=== PATIENT | male | born 1995 | race Caucasian/White ===

== ENCOUNTER 2020-07-19 15:35 | Emergency (ER) | payer OTHER ==
[~2020-07-19] VITALS: Ht 185.4 cm; Wt 77.1 kg
[~2020-07-19 15:35] MED LIST: NOHOMEMEDICATIONS; PERCOCET 5-3251 EACH PO; PREDNISONE 20 M20 M1 PO; VENTOLIN HFA 1818 GM INH; ZPAK PO
[2020-07-19 16:18] LABS: ABSOLUTE BASOPHILS 0.1 thou/uL (0.0-0.2); ABSOLUTE EOSINOPHILS 0.2 thou/uL (0.0-0.7); ABSOLUTE LYMPHOCYTES 2.3 thou/uL (0.8-5.3); ABSOLUTE MONOCYTES 0.9 thou/uL (0.0-1.2); ABSOLUTE NEUTROPHILS 6.4 thou/uL (1.6-8.1); BASOPHILS 1.3 %; EOSINOPHILS 1.7 %; LYMPHOCYTES 23.1 %; MCH 30.8 pg (26.0-34.0); MCHC 34.1 g/dL (28.0-37.0); MCV 90.5 fL (80.0-100.0); MONOCYTES 8.9 %; MPV 7.5 fl. (7.2-11.1); NUCLEATED RBCS 0 /100WBC; PLATELET COUNT* 257 thou/uL (150-400); RBC 4.86 mil/uL (4.50-6.00); RDW-CV 13.5 % (10.5-14.5); WBC 9.9 thou/uL (4.0-11.0)
[2020-07-19 16:27] LABS: CALCIUM 8.9 mg/dL (8.5-10.1); CREATININE 1.4 mg/dL (0.6-1.3); POTASSIUM 3.5 mmol/L (3.5-5.1)
[2020-07-19 16:35] LABS: APTT 25.5 Seconds (25.0-31.3); INR 1.1
[2020-07-19 16:37] LABS: ALBUMIN 4.2 g/dL (3.4-5.0); MAGNESIUM 2.1 mg/dL (1.8-2.4); TOTAL BILIRUBIN 0.3 mg/dL (<0.1-1.0)
[2020-07-19] MEDS ORDERED: NORCO 5-325 TA1 EAC2 PO (18:29)
[2020-07-19] MEDS ORDERED: NAPROSYN500 MG PO (18:29)
[2020-07-19] MEDS ORDERED: ZANAFLEX4 MG PO (18:29)
[2020-07-19 18:41] VITALS: BP 116/59
--- NOTE | 2020-07-20 18:26 | EKG ---
[place] [address] ELECTROCARDIOGRAM REPORT Name: ROBERTO MORTON Room: [facility]#: [id number] Admission: 07/19/20 Attend Phys: Discharge: 07/19/20 Date of : 89 Date of Service: 07/19/20 1602 Report #: [id number] THIS REPORT FOR: //name// [facility] ED Test Date: 2020-07-19 Test Time: 16:02:27 Pat Name: ROBERTO MORTON Department: Room: Gender: [place] Open[place]: : 1995 Requested By: Juliette Lindsey Order Number: [id number] MD: Syed Chakraborty Measurements Intervals [place] Rate: 88 P: 73 WI: 136 QRS: 55 QRSD: 112 T: 53 QT: 366 QTc: 443 Interpretive Statements Sinus rhythm Borderline intraventricular conduction delay Baseline wander in lead(s) V3 No previous ECG available for comparison javascript:perform('study_confirm'); Electronically Signed On 07-20-2020 18:26:23 CDT by Syed Chakraborty [email or web address] <ELECTRONICALLY SIGNED> By: Syed Chakraborty MD, FACC 07/20/20 1826 160 160 Syed Chakraborty MD, FAC /EPI
== END 2020-07-19 18:42 | disposition home or self-care (01) ==
LOC: M.ERS 15:35
PROVIDERS: Nurse Practitioner Family
DX: S29.011A Strain of muscle and tendon of front wall of thorax, initial encounter (principal); S29.019A Strain of muscle and tendon of unspecified wall of thorax, initial encounter; J45.909 Unspecified asthma, uncomplicated; F17.210 Nicotine dependence, cigarettes, uncomplicated; Z88.0 Allergy status to penicillin; Z88.6 Allergy status to analgesic agent; X50.1XXA Overexertion from prolonged static or awkward postures, initial encounter; Y93.89 Activity, other specified; Y92.89 Other specified places as the place of occurrence of the external cause; Y99.8 Other external cause status